=== PATIENT | female | born 1945 | race Caucasian/White ===

== ENCOUNTER → 2016-04-12 | Outpatient (CLI) | payer MEDICARE ==
[2016-01-18 09:56] VITALS: BP 178/76
[~2016-04-12] MED LIST: AMLO5TAB2 PO; BUDE10.2 IH; BUDE10.22 IH; IOHEXOL 240 MG/ML 50ML VIAL. PO ONE; IOHEXOL 300 MG/ML 100ML VIAL. IV ONE; LETR2.5T18 PO; LEVO100T5 PO; LISI10TA2 PO; MELO-150 PO; PROAIR HFA8.5 GM IH; RANI150C PO; ROPI1TAB PO
--- NOTE | 2016-04-12 15:05 | KCIC ---
PROCEDURE CT abdomen and pelvis with contrast. HISTORY Diffuse abdominal pain, abnormal bowel sounds. Colon, lung, breast cancer. Constipation. TECHNIQUE Helical CT imaging of the abdomen and pelvis is performed after oral contrast and 100 cc Isovue 370 IV contrast. PQRS: One or more the following individualized dose reduction techniques were utilized for the study: 1. Automated exposure control. 2. Adjustment of the mA and/or kV according to patient size. 3. Use of iterative reconstruction technique. COMPARISON CT chest with contrast December 20, 2015. FINDINGS Spiculated mass in the right lower lobe has mildly increased in size, maximum dimension 3 centimeters. There are new ground-glass opacities in the posterior right lower lobe. Mild atelectasis in the left lower lobe. Trace right pleural effusion. Cardiac size normal. Cholecystectomy. Fat containing supraumbilical hernia. Liver, spleen, pancreas, and abdominal aortic caliber are normal. Adrenal glands are stable. There are bilateral renal cysts. There is no hydronephrosis. Stomach unremarkable. No dilated small bowel. Enterocolic anastomosis at the hepatic flexure. Proximal colon has been resected. No colon wall thickening. No abdominal adenopathy or free fluid. The urinary bladder is not thickened. Atrophic uterus. No pelvic free fluid. Mild grade 1 anterolisthesis of L4 on L5 and L5 on S1. IMPRESSION 1. No acute abdominal or pelvic abnormality. 2. Spiculated mass in the right lower lobe is mildly increased in size. 3. There is new trace right pleural effusion. 4. There are ground-glass opacities in the posterior right lower lobe. Considerations include atelectasis or pneumonitis or metastatic disease. Electronically signed by: Josh Meza MD (Apr 12, 2016 15:03:37)
== END | disposition home or self-care (01) ==
LOC: KCIC CT 13:36
PROVIDERS: ATTEND Physician Assistant Medical
DX: J90 Pleural effusion, not elsewhere classified (principal); J98.11 Atelectasis; J18.9 Pneumonia, unspecified organism; N85.8 Other specified noninflammatory disorders of uterus; N28.1 Cyst of kidney, acquired; Z85.3 Personal history of malignant neoplasm of breast
CPT/HCPCS: 74177; Q9966; Q9967

== ENCOUNTER → 2016-05-09 | Outpatient (CLI) | payer MEDICARE ==
[2016-01-18 09:56] VITALS: BP 178/76
[~2016-05-09] MED LIST changes: -IOHEXOL 240 MG/ML 50ML VIAL. PO ONE; -IOHEXOL 300 MG/ML 100ML VIAL. IV ONE; +RIVA10TA PO
--- NOTE | 2016-05-09 12:14 | KCIC ---
PROCEDURE Three view left shoulder and 2 views left humerus dated 05/09/2016. HISTORY Arm pain for 2-1/2 weeks. TECHNIQUE Three views left shoulder and 2 views left humerus. COMPARISON 06/30/2015. FINDINGS Three views left shoulder show normal bony alignment. No displaced fracture. No acute osseous or articular abnormality. Mild hypertrophic change of the AC joint. There are subchondral cystic changes of the glenoid with ovoid hyperdense focus in the subcoracoid region that measures 1.3 centimeters in size, new from prior study. Two views left humerus show normal bony alignment. No displaced fracture. No acute osseous or articular abnormality. IMPRESSION No acute radiographic abnormality. Degenerate change at the glenohumeral joint with probable small loose body at the anterior joint space. Electronically signed by: José Miguel Martin (May 09, 2016 12:13:01)
== END | disposition home or self-care (01) ==
LOC: KCIC 11:33
PROVIDERS: ATTEND Physician Assistant Medical
DX: M25.512 Pain in left shoulder (principal)
CPT/HCPCS: 73030; 73060

== ENCOUNTER → 2016-05-11 | Outpatient (CLI) | payer MEDICARE ==
[2016-01-18 09:56] VITALS: BP 178/76
--- NOTE | 2016-05-11 15:45 | KCIC ---
Examination: MRI of the left shoulder without contrast. HISTORY History of left shoulder pain COMPARISON None available. TECHNIQUE Multiplanar, multisequence MR imaging of the left shoulder were performed without contrast Findings: The long head of biceps tendon is within the bicipital groove. The attachment of the long head of the biceps tendon to the superior labral anchor grossly appears intact.There is moderate tendinosis of the subscapularis tendon. There is a slight increased signal identified in the bursal side of the supraspinatus tendon extending anteriorly from best visualized on series 6 image 10 2 image 12, measuring 7 millimeters in AP dimension possibly a small bursal sided tear at its attachment to the greater tuberosity. There is moderate increased identified in the supraspinatus, infraspinatus likely tendinosis. Small shoulder joint effusion is identified. Moderate size subchondral cysts identified in the inferior glenoid region likely due to degeneration. There is near complete cartilage loss identified in the glenohumeral joint likely due to degeneration. The muscle bulk grossly appears unremarkable.There is a diffuse increased signal identified throughout the labrum likely due to degeneration. Moderate degenerative changes identified in the acromioclavicular joint. The acromion is type 1. Moderate size osteophyte formation identified in the inferior humerus. There is mild increased T2 signal identified at the humeral attachment of the anterior band of the inferior glenohumeral ligament. IMPRESSION - Faint subtle increased T2 signal identified in the supraspinatus tendon extending toward the bursal side could be a small bursal sided tear measuring 7 millimeters. - Moderate tendinosis subscapularis, supraspinatus, infraspinatus tendons.No evidence of full-thickness tear of the rotator cuff. - Severe degenerative changes glenohumeral joint. Moderate degenerative changes acromioclavicular joint reprepped. - There is mild increased T2 signal identified at the humeral attachment of the anterior band of the inferior glenohumeral ligament. This most likely is adhesive capsulitis. Other possibility includes injury to anterior band of the inferior glenohumeral ligament if there is history of injury. Electronically signed by: Jt Uribe (May 11, 2016 15:43:22)
== END | disposition home or self-care (01) ==
LOC: KCIC MRI 14:22
PROVIDERS: ATTEND Physician Assistant Medical
DX: M25.512 Pain in left shoulder (principal)
CPT/HCPCS: 73221

== ENCOUNTER → 2017-01-09 | Outpatient (CLI) | payer BC, MEDICARE ==
[2016-01-18 09:56] VITALS: BP 178/76
[~2017-01-09] MED LIST changes: -MELO-150 PO; +MELO15TA23 PO
--- NOTE | 2017-01-09 09:35 | KCIC ---
DATE: 01/09/2017. EXAM: MAMMO [facility] C DIALelia BILAT. HISTORY: Personal history of left breast cancer status post breast conservation therapy. Routine surveillance.. COMPARISON: 01/11/2016, 01/19/2015. This study was interpreted with the benefit of Computerized Aided Detection (CAD). FINDINGS: The breast parenchyma shows scattered fibroglandular densities. Breast parenchyma level B.. There are no suspicious masses, microcalcifications or architectural distortion. Breast conservation therapy changes are noted inferiorly on the left. A coarse calcification on the left is benign. Small nodules superiorly on the right are stable and benign. BI-RADS CATEGORY: 2 BENIGN FINDING(S). RECOMMENDED FOLLOW-UP: 12M 12 MONTH FOLLOW-UP. PQRS compliance statement: Patient information was entered into a reminder system with a target due date 01/09/2018 for the next mammogram. Mammography is a sensitive method for finding small breast cancers, but it does not detect them all and is not a substitute for careful clinical examination. A negative mammogram does not negate a clinically suspicious finding and should not result in delay in biopsying a clinically suspicious abnormality. "Our facility is accredited by the [employer] Mammography Program."
== END | disposition home or self-care (01) ==
LOC: KCIC MAMMO 07:49
PROVIDERS: ATTEND Internal Medicine Hematology & Oncology
DX: C50.912 Malignant neoplasm of unspecified site of left female breast (principal); C78.00 Secondary malignant neoplasm of unspecified lung; C18.9 Malignant neoplasm of colon, unspecified; Z85.3 Personal history of malignant neoplasm of breast
CPT/HCPCS: G0204; G0279; 77062; 77066